=== PATIENT | female | born 1965 | race Caucasian/White ===

== ENCOUNTER 2016-10-20 15:05 | Emergency (ER) | payer OTHER ==
[2016-10-20 15:40] VITALS: BP 132/70; PULSE 79; TEMP 98; BMI 27.7
--- NOTE | 2016-10-20 16:14 | PDOC ---
History of Present Illness - General Chief Complaint: Pain Stated Complaint: LOWER BACK PAIN Time Seen by Provider: 10/20/16 16:10 History Source: Patient Exam Limitations: No Limitations - History of Present Illness Initial Comments: CHIEF COMPLAINT: 51 y/o afebrile female with no significant PMH c/o right back pain for the past 4 days. HISTORY OF PRESENT ILLNESS: The patient admits the pain is intermittent and has gotten much better today. She did take Advil last night and felt much better. She denies f/c, n/v/d, CP, SOB, abd pain, side pain, hematuria, dysuria , increased urinary frequency, recent heavy lifting. Vital signs on arrival are within normal limits. REVIEW OF SYSTEMS: GENERAL/CONSTITUTIONAL: No fever/chills. No weakness. No weight change. HEAD, EYES, EARS, NOSE AND THROAT: No change in vision. No ear pain or discharge. No sore throat. CARDIOVASCULAR: No chest pain or shortness of breath. RESPIRATORY: No cough, wheezing, or hemoptysis. GASTROINTESTINAL: No abd pain, nausea, vomiting, diarrhea. GENITOURINARY: No dysuria, frequency, or change in urination. MUSCULOSKELETAL: No joint or muscle swelling or pain. No neck pain. +right back pain. SKIN: No rash or easy bruising. NEUROLOGIC: No headache, vertigo, loss of consciousness, or loss of sensation. PHYSICAL EXAM: GENERAL: The patient is awake, alert, and fully oriented, in no acute distress. She is very well appearing, ambulatory, in NAD or obvious discomfort. HEAD: Normal with no signs of trauma. ABDOMEN: Soft, non-distended, non-tender even to deep palpation, no hepatomegaly or splenomegaly, no masses. BACK: No midline lumbar spine TTP or step offs. Full flexion, extension, and lateral movements of the lumbar spine without pain. No CVA TTP b/l. No flank pain with palpation. EXTREMITIES: Normal range of motion, no edema. NEUROLOGICAL: Normal speech, normal gait. CN II-XII grossly intact. PSYCH: Normal mood, normal affect. SKIN: Warm, dry, normal turgor, no rashes or lesions noted. Past History - Past Medical History Allergies/Adverse Reactions: Allergies Allergy/AdvReac Type Severity Reaction Status Date / Time No Known Allergies Allergy Verified 10/20/16 15:37 Home Medications: Ambulatory Orders NK [No Known Home Medication] 10/20/16 - Psycho/Social/Smoking Cessation Hx Anxiety: No Suicidal Ideation: No Smoking History: Never smoked Have you smoked in the past 12 months: No Information on smoking cessation initiated: No Hx Alcohol Use: No Drug/Substance Use Hx: No Substance Use Type: None *Physical Exam - Vital Signs Last Vital Signs Temp Pulse Resp BP Pulse Ox 98 F 79 18 132/70 99 10/20/16 15:37 10/20/16 15:37 10/20/16 15:37 10/20/16 15:37 10/20/16 15:37 Medical Decision Making - Medical Decision Making A/P: 51 y/o afebrile female with right upper back pain. Suspect either muscle strain or kidney stone. Plan is as follows: 1. UA/culture Laboratory Tests 10/20/16 16:16 Urine Color Straw Urine Appearance Clear Urine pH 6.0 Ur Specific [place] Pending Urine Protein Negative Urine Glucose (UA) Negative Urine Ketones Negative Urine Blood 2+ H Urine Nitrite Negative Urine Bilirubin Negative Urine Urobilinogen Negative Ur Leukocyte Esterase Trace H Urine RBC 31 Urine WBC 3 Ur Epithelial Cells Rare Urine Mucus Rare Most likely the patient had a kidney stone that has passed. Since she has no fever, is not vomiting, is negative for UTI and has no CVA tenderness will discharge to home with instructions to take 600mg of motrin every 6 hours with food and drink lots of fluids. Suggested she f/u with her doctor in 1 week and return to the ER with any worsening or concerning symptoms. The patient verbalizes understanding of all instructions, has no further questions and is awaiting discharge. *DC/Admit/Observation/Transfer Diagnosis at time of Disposition: Hematuria, Calculus of kidney Back pain Qualifiers: Back pain location: low back pain Chronicity: acute Back pain laterality: right Sciatica presence: without sciatica Qualified Code(s): M54.5 - Low back pain - Discharge Dispostion Disposition: HOME Condition at time of disposition: Good - Referrals Referrals: Marcia Jacob MD [Primary Care Provider] - Call tomorrow (Call Saturday) - Patient Instructions Printed Discharge Instructions: DI for Kidney Stones, DI for Low Back Pain Additional Instructions: Discharge Instructions: -Drink at least 64oz of water daily -Take 600mg of Ibuprofen with food every 6 hours for pain -Call your doctor on Saturday to schedule follow up appointment -Return to the ER immediately with any worsening or concerning symptoms Instrucciones de navdeep: - Catarina al menos 64 onzas de agua al da -Mcgill 600mg de Ibuprofen con alimentos cada 6 horas para el dolor - Llame a magallon mdico el para programar vasquez kiki de seguimiento -Vuelva a la uri de emergencias inmediatamente con cualquier empeoramiento o con respecto a los sntomas Print Language: GUAMANIAN
[2016-10-20 16:36] LABS: URINE APPEARANCE CLEAR; URINE BILIRUBIN NEGATIVE (NEGATIVE); URINE COLOR STRAW; URINE GLUCOSE (UA) NEGATIVE (NEGATIVE); URINE KETONE NEGATIVE (NEGATIVE); URINE NITRITE NEGATIVE (NEGATIVE); URINE PROTEIN NEGATIVE (NEGATIVE); URINE UROBILINOGEN NEGATIVE E.U./dl (0.2-1.0)
[2016-10-20 16:37] LABS: URINE BLOOD 2+ (NEGATIVE); URINE LEUK ESTERASE TRACE (NEGATIVE)
[2016-10-20 16:38] LABS: URINE MUCUS RARE; URINE RBC 31 /hpf (0-3); URINE WBC 3 /hpf (3-5)
== END 2016-10-20 16:58 | disposition home or self-care (01) ==
LOC: JERFT 15:05 → JER 15:05 → JERFT 16:58
DX: N20.0 Calculus of kidney (principal)
CPT/HCPCS: 81003; 81015; 87086; 99281-25